=== PATIENT | male | born 1995 | race Caucasian/White ===

== ENCOUNTER → 2022-12-30 10:51 | Outpatient (BNVA) | payer OTHER, SELFPAY | PROVIDERS: Family Provider Family Medicine; PCP Family Medicine; Visit Provider Family Medicine | DX: Z02.4 Encounter for examination for driving license (principal) | CPT/HCPCS: 81000 ==

== ENCOUNTER 2023-11-17 19:09 | Emergency (ER) | payer OTHER, SELFPAY ==
[2023-11-17 19:12] VITALS: BP 159/77; PULSE 77; RESP 16; TEMP 36.8; O2SAT 99; BMI 27.8
[2023-11-17] MEDS: tetracaine 0.5% Op Soln 4 mL Btl 1 DROP EYE-LEFT (20:06)
[2023-11-17] MEDS: fluorescein 1 mg Strip EYE-LEFT (20:06)
--- NOTE | 2023-11-17 20:16 | ED_ITS ---
HPI - Eye Problem General: Chief complaint: Eye Problems Stated complaint: something in right eye Time Seen by Provider: 11/17/23 19:52 History of Present Illness: Is a healthy 28-year-old male presents the emergency room with right eye pain. [place] had something in his eye. He washed it out with river water. He now has some swelling of his eyelids and redness. And some erythema of his eye. He feels like there might still be something in his eye. No vision changes. No pain with eye movement. Review of Systems Narrative: Constitutional symptoms: Negative except as documented in HPI. Skin symptoms: Negative except as documented in HPI. Eye symptoms: Negative except as documented in HPI. ENMT symptoms: Negative except as documented in HPI. Respiratory symptoms: Negative except as documented in HPI. Cardiovascular symptoms: Negative except as documented in HPI. Gastrointestinal symptoms: Negative except as documented in HPI. Genitourinary symptoms: Negative except as documented in HPI. Musculoskeletal symptoms: Negative except as documented in HPI. Neurologic symptoms: Negative except as documented in HPI. Psychiatric symptoms: Negative except as documented in HPI. Endocrine symptoms: Negative except as documented in HPI. Physical Exam Narrative: EXAM NARRATIVE: General: Alert, no acute distress. Skin: warm and dry Head: Normocephalic Neck: Trachea midline Eye: Extraocular movements are intact. Vision grossly normal. Some erythema and edema of the eyelids. Some mild erythema of the sclera. Ears, nose, mouth and throat: Oral mucosa moist Respiratory: Respirations are non-labored Musculoskeletal: Normal ROM Neurological: Alert and oriented, No focal neurological deficit observed. Psychiatric: Cooperative, appropriate mood & affect. Course Vital Signs: Vital signs: Vital Signs Temperature 98.2 F 11/17/23 19:12 Pulse Rate 77 11/17/23 19:12 Respiratory Rate 16 11/17/23 19:12 Blood Pressure 159/77 11/17/23 19:12 Pulse Oximetry 99 11/17/23 19:12 Oxygen Delivery Me thod Room Air 11/17/23 19:12 MDM - Eye Problem Medical Decision Making Slit lamp examination of eye. tetracaine applied to the affected eye. once significant analgesia occurred fluorescein dye was applied to the eye Examination under our local eye reveals no obvious corneal abrasions. No foreign bodies. I was then irrigated copiously with saline. Polytrim applied to the eye here and a prescription was given Assessment and plan: Corneal abrasion -I do not see any obvious large corneal abrasion on exam, however will go to treated as if it is a corneal abrasion. Put him on some antibiotic drops for home particularly given that he washed out his eye with river water. - Discharged home - Discussed plan with patient. Answered any questions. - Evaluation and treatment of this problem were appropriate in the emergency setting. No radiology studies performed this visit Discharge Plan Discharge Patient Disposition: Home Clinical Impression: Corneal abrasion Qualifiers: Encounter type: initial encounter Laterality: right Qualified Code(s): S05.01XA - Injury of conjunctiva and corneal abrasion without foreign body, right eye, initial encounter Condition: Stable Prescriptions: New gentamicin 0.3 % drops 1 drp ophthalmic (eye) QID Qty: 5 0RF Discharge Orders: Discharge ED (Routine); Ordered 11/17/23 Ordered By: Elmira Lyon Referrals: Anju Esposito FNP [Primary Care Provider] - Michael Stern MD [Family Provider] - Discharge Diet: Usual diet Discharge Activity: Resume usual activity Patient Instructions: Corneal Abrasion (ED) Activity Restrictions/Additional Instructions: Thank you for choosing [facility] for your healthcare needs today. Please realize this is an emergency room and that we are providing you with a medical screening exam and this may not be complete and all inclusive of all the testing and or work up that you may need to determine your ailment or severity of your illness. You have been screened and evaluated and felt safe for discharge. Health conditions do change or evolve sometimes and as such it is important that you follow up with your Primary Doctor to be re checked, 3-5 days is a general good time frame for follow up. You are always welcome to return to the ED for re assessment if your symptoms are worsening or you have new concerns Coding Level of Care Code ED Care Program Director for Uriel Wagner
== END 2023-11-17 20:19 | disposition home or self-care (01) ==
PROVIDERS: Emergency Provider Emergency Medicine; Family Provider Family Medicine; PCP Nurse Practitioner Family
DX: S05.01XA Injury of conjunctiva and corneal abrasion without foreign body, right eye, initial encounter (principal); X58.XXXA Exposure to other specified factors, initial encounter; Y92.828 Other wilderness area as the place of occurrence of the external cause
CPT/HCPCS: 99283